=== PATIENT | male | born 1990 | race Caucasian/White ===

== ENCOUNTER 2016-11-29 20:58 | Emergency (ER) | payer SELFPAY ==
[~2016-11-29] VITALS: Ht 175.3 cm; Wt 77.0 kg
[2016-11-30] MEDS ORDERED: LIDOCAINE HCL BUFFERED 1% 20 ML VIAL ONE (00:13)
[2016-11-30 00:16] VITALS: BP 130/67
== END 2016-11-30 00:56 | disposition home or self-care (01) ==
LOC: EMS 21:02
DX: S01.112A Laceration without foreign body of left eyelid and periocular area, initial encounter (principal); W45.8XXA Other foreign body or object entering through skin, initial encounter; Y93.89 Activity, other specified; Y92.89 Other specified places as the place of occurrence of the external cause; Y99.8 Other external cause status
CPT/HCPCS: 12013; 99283; J3490